=== PATIENT | female | born 2000 | race Caucasian/White ===

== ENCOUNTER 2019-05-22 21:18 | Emergency (ER) | payer OTHER ==
[~2019-05-22] VITALS: Ht 157.5 cm; Wt 65.8 kg
[2019-05-22] MEDS ORDERED: LAMO150T2 PO (21:53)
[2019-05-22] MEDS ORDERED: AMPH5CAP PO (21:53)
[2019-05-22] MEDS ORDERED: AMPH10CA3 PO (21:53)
[2019-05-22 23:07] VITALS: BP 112/63
--- NOTE | 2019-05-22 23:08 | NUR ---
dPatient discharged to home in stable conditon. Written and verbal after care instructions given. Patient verbalizes understanding of instructions. Pt ambulated out of ER with stable gait.
== END 2019-05-22 23:08 | disposition home or self-care (01) ==
LOC: ER 21:27
DX: M67.432 Ganglion, left wrist (principal); Z88.1 Allergy status to other antibiotic agents; Z88.8 Allergy status to other drugs, medicaments and biological substances; Z79.899 Other long term (current) drug therapy
CPT/HCPCS: 73110; A4663